=== PATIENT | male | born 1940 | race Caucasian/White ===

== ENCOUNTER 2016-06-23 07:02 | Outpatient (CLI) | payer MEDICARE ==
[~2016-06-23] VITALS: Ht 167.6 cm; Wt 103.6 kg
--- NOTE | ~2016-06-23 | HEMODYNAMI ---
PATIENT:MILLICENT SHERWOOD MEDICAL RECORD: [id number] : 44 LOCATION:[facility] ADMISSION DATE: 06/23/16 Generatedon:06/23/201611:25 Patient name: MILLICENT SHERWOOD Patient #: [id number] SSN: : 1940 Date of study: 06/23/2016 Page: Of Hemodynamic Procedure Report Patient Data Patient Demographics Procedure consent was obtained First Name: MILLICENT Gender: Male Last Name: PRESLEY : 1940 [facility] Initial: J Age: 76 year(s) Patient #: [id number] Race: Unknown Additional ID: [id number] Contact details Address: [place] [address] State: [place] City: [facility] Zip code: [address] Past Medical History Allergies: No known allergies Admission Admission Data Admission Date: 06/23/2016 Admission Time: 7:02 Admit Source: Other Procedure Procedure Types Cath Procedure Diagnostic Procedure LHC LHC w/Coronaries PCI Procedure Coronary Stent Initial Procedure Description Procedure Date Procedure Date: 06/23/2016 Procedure Start Time: 11:11 Procedure End Time: 11:25 Procedure Staff Name Function Quiana Sam MD Ordering physician Shamir Ames MD Performing Physician Armaan Mendoza RT Scrub Shandra Wakefield RN Nurse Darrick Cancino RT Jewel Setter Macario Ashby RT Monitor Procedure Data Cath Procedure Fluoroscopy Diagnostic fluoroscopy Total fluoroscopy Time: 2.2 time: 2.2 min min Diagnostic fluoroscopy Total fluoroscopy dose: 807 dose: 807 mGy mGy Contrast Material Contrast Material Type Amount (ml) Isovue 370 90 Entry Location Entry Primary Successful Side Size Upsize Upsize Entry Closure Succes sful Closure Location (Fr) 1 (Fr) 2 (Fr) Remarks Device Remarks Femoral Right 5 Fr 6 Fr Vascade artery Short Closure System Diagnostic catheters Device Type Used For End Catheter Placement Cordis 5Fr Pigtail LV Angiography Catheter (MP) Cordis 5Fr JL 4.0 Left Coronary Catheter (MP) Angiography Cordis 5Fr 3DRC Catheter Right Coronary (MP) Angiography Procedure Complications No complications Procedure Medications Medication Administration Route Dosage Oxygen NC 2 l/min Heparin Flush Bag added to field 2 bags (1000units/500ml NS) Lidocaine 2% added to field 20 Benadryl I.V. 50 mg Versed I.V. 1 mg Fentanyl I.V. 50 mcg Fentanyl I.V. 50 mcg Heparin Bolus 4000 units Integrilin (Bolus I.V. 9.5 ml 2mg/ml) Versed I.V. 0.5 mg Plavix P.O. 600 mg Hemodynamics Rest Heart Rate: 56 (bpm) Snapshots Pre Cath Intra NCS Post Cath Vital Signs Time Heart Resp SPO2 NIBP (mmHg) Rhythm Pain Sedation Rate (ipm) (%) Status Level (bpm) 10:57:55 53 18 98 147/68(115) SB 0 (11) 10(A) , No pain 11:02:52 52 16 99 161/77(127) SB 0 (11) 10(A) , No pain 11:07:12 56 20 98 126/65(93) SB 0 (11) 10(A) , No pain 11:11:29 55 16 97 114/63(85) SB 0 (11) 10(A) , No pain 11:15:40 53 16 99 132/63(95) SB 0 (11) 9(A) , No pain 11:19:52 58 16 99 115/61(77) SB 0 (11) 9(A) , No pain 11:22:40 55 16 96 120/58(85) SB 0 (11) 10(A) , No pain Medications Time Medication Route Dose Verified Delivered Reason Notes Effectiveness by by 10:57:24 Oxygen NC 2 Shamir Shandra Per l/min Kwaku Wakefield RN physician 10:57:33 Heparin Flush added 2 Shamirpatria Barksdale used for Bag to bags Kwaku Ames MD procedure (1000units/500ml field NS) 10:57:40 Lidocaine 2% added 20ml Shamir Barksdale used for to vial Kwaku Ames MD procedure field 10:57:46 Benadryl I.V. 50 mg Shamir Shandra Per Kwaku Wakefield RN physician 11:10:45 Versed I.V. 1 mg Shamir Shandra for sedation Kwaku Wakefield RN 11:10:53 Fentanyl I.V. 50 Shamir Shandra for sedation mcg Kwaku Wakefield RN 11:13:00 Fentanyl I.V. 50 Shamir Shandra for sedation mcg Kwaku Wakefield RN 11:13:49 Versed I.V. 0.5 Shamir Shandra for sedation mg Kwaku Wakefield RN 11:15:50 Heparin Bolus 4000 Shamir Shandra dose units Kwaku Wakefield RN verified wtih dr ames 11:17:24 Integrilin I.V. 9.5 Shamir Shandra for (Bolus 2mg/ml) ml Kwaku Wakefield RN antiplatelet therapy 11:21:21 Plavix P.O. 600 Shamir Shandra for mg Kwaku Wakefield RN antiplatelet therapy Procedure Log Time Note 10:44:54 Admit Source: Other 10:44:57 Darrick Cancino RT(R) sent for patient. Start room use. 10:44:58 Time tracking: Regular hours 10:45:01 Plan of Care:Hemodynamics will remain stable., Cardiac rhythm will remain stable., Comfort level will be maintained., Respiratory function will remain adequate., Patient/ family verbilizes understanding of procedure., Procedure tolerated without complication., Recovers from procedure without complications.. 10:49:30 Patient allergic to No known allergies 10:52:57 Patient received from Outpatients to [facility] 1 Alert and oriented. Tansferred to table in Supine position. 10:52:58 Warm blankets applied, and eliseo hugger turned on for patient comfort. 10:52:58 Correct patient and procedure confirmed by team. 10:53:00 Signed procedure consent form obtained from patient. 10:53:01 ECG and BP/O2 sat monitors applied to patient. 10:56:47 Vital chart was started 10:57:24 Oxygen 2 l/min NC was given by Shandra Wakefield RN; Per physician; 10:57:33 Heparin Flush Bag (1000units/500ml NS) 2 bags added to field was given by Shamir Ames MD; used for procedure; 10:57:40 Lidocaine 2% 20ml vial added to field was given by Shamir Ames MD; used for procedure; 10:57:46 Benadryl 50 mg I.V. was given by Shandra Wakefield RN; Per physician; 11:06:51 Baseline sample Acquired. 11:07:09 Rhythm: sinus rhythm 11:07:12 Full Disclosure recording started 11:07:39 H&P Date Dictated: 06/08/2017 Within 30 days and on chart.. 11:07:41 Pre-procedure instructions explained to patient. 11:07:45 Pre-op teaching completed and patient verbalized understanding. 11:07:46 Family in waiting room. 11:07:48 Patient NPO since Midnight. 11:07:51 Is the patient allergic to Iodine/contrast media? No. 11:07:53 Is patient on blood thinner?No 11:08:38 Patient diabetic? Yes. 11:08:40 If diabetic: On Metformin? No 11:08:40 ----Pre-sedation anethsthesia assessment.---- 11:08:42 Previous problem with sedation/anesthesia? No ? 11:08:44 Snore? Yes 11:08:45 Sleep apnea? No 11:08:46 Deviated septum? No 11:08:48 Opens mouth fully? Yes 11:08:49 Sticks out tongue? Yes 11:08:51 Airway obstruction? No ? 11:08:55 Dentures? Yes top in tight 11:08:59 Pre procedure: right dorsailis pedis pulse 2+ Normal; easily identifiable; not easily obliterated 11:09:04 Patient pain scale 0/10 ?. 11:09:08 IV patent on arrival in left hand with 0.9% NaCl at 10ml/hr. 11:09:22 Zero performed for pressure channel P1 11:10:22 Lab results completed and on chart. 11:10:24 Right groin area was prepped with chlora-prep and draped in sterile fashion 11:10:25 Alarms reviewed by R. N. 11:10:25 Sharps counted by scrub and verified by R.N. 11:10:26 --------ALL STOP TIME OUT------ 11:10:27 Final Timeout: patient, procedure, and site verified with staff and physician. All members of the team are in agreement. 11:10:28 Right groin site verified by team. 11:10:32 Physical assessment completed. ASA score P 2 - A patient with mild systemic disease as per Shamir Ames MD. 11:10:36 Sedation plan: IV Moderate Sedation Versed, Fentanyl 11:10:45 Versed 1 mg I.V. was given by Shandra Wakefield RN; for sedation; 11:10:53 Fentanyl 50 mcg I.V. was given by Shandra Wakefield RN; for sedation; 11:10:58 Use device set Femoral Dx 11:10:59 Acist Syringe opened to sterile field. 11:11:00 Bag Decanter opened to sterile field. 11:11:00 Cardinal Cath Pack opened to sterile field. 11:11:00 Terumo 5Fr Assumption Sheath opened to sterile field. 11:11:01 St Tez 260cm J .035 wire opened to sterile field. 11:11:02 Acist Hand Control opened to sterile field. 11:11:02 Acist Manifold opened to sterile field. 11:11:03 Cordis Infinity 5Fr Multipack catheter opened to sterile field. 11:11:04 Tegaderm 4 x 4 opened to sterile field. 11:11:10 Procedure started. 11:11:17 Local anesthetic to right femoral artery with Lidocaine 2% by Shamir Ames MD.INITIAL ACCESS ONLY 11:11:25 A 5 Fr sheath was inserted into the Right Femoral artery 11:11:31 A Cordis 5Fr Pigtail Catheter (MP) was advanced over the wire and used for LV Angiography. 11:11:36 LV angiography performed. 11:11:39 LV gram done using WHITESIDE 11:11:44 EF : 40 % 11:11:47 Catheter removed. 11:11:52 A Cordis 5Fr JL 4.0 Catheter (MP) was advanced over the wire and used for Left Coronary Angiography. 11:11:56 LCA angiography performed. 11:12:30 Terumo 6Fr Assumption Sheath opened to sterile field. 11:12:30 Puentes Whisper J 300cm 0.014 guide wire opened to sterile field. 11:12:31 Merit BasixCompak Inflation Kit opened to sterile field. 11:12:34 Catheter removed. 11:12:45 A Cordis 5Fr 3DRC Catheter (MP) was advanced over the wire and used for Right Coronary Angiography. 11:12:48 RCA angiography performed. 11:12:59 Catheter removed. 11:13:00 Fentanyl 50 mcg I.V. was given by Shandra Wakefield RN; for sedation; 11:13:49 Versed 0.5 mg I.V. was given by Shandra Wakefield RN; for sedation; 11:15:50 Heparin Bolus 4000 units was given by Shandra Wakefield RN; ; dose verified wt dr ames 11:15:50 Cordis 6FR XBLAD 4.0 guide catheter opened to sterile field. 11:16:05 ACC PCI Site: mLAD has 80% stenosis. 11:16:07 ACC Pre-intervention IRINA Flow is 3. 11:16:14 Sheath upsized to a 6 Fr Short. 11:16:22 6 Fr XBLAD 4 guide catheter was inserted over the wire 11:16:25 WHISPER wire advanced. 11:17:24 Integrilin (Bolus 2mg/ml) 9.5 ml I.V. was given by Shandra Wakefield RN; for antiplatelet therapy; 11:17:33 Inflation Number: 1 A Medtronic Resolute 2.5 X 8 stent was prepped and advanced across the Mid LAD. The stent was deployed at 17 SHAILESH for 0:23 (min:sec). 11:17:55 Stent catheter was removed intact over wire. 11:17:56 Wire removed. 11:17:56 Guide catheter removed. 11:18:17 Contrast amount:Isovue 370 90ml. 11:18:24 Sheath removed intact; hemostasis achieved with Vascade Closure System to the Right Femoral artery. 11:18:27 Procedure ended.(Physican Out) 11:18:54 Fluoroscopy time 02.20 minutes. 11:19:00 Fluoroscopy dose: 807 mGy 11:19:00 Flurop Dose total: 807 11:19:01 Sharps counted by scrub and verified by R.N. 11:19:01 Insertion/operative site no bleeding no hematoma. 11:19:04 Post-op/insertion site Right Femoral artery dressed using a 4 x 4 and Tegaderm. 11:19:07 Post right femoral artery:stable 11:19:08 Post Procedure Pulses reassessed and unchanged 11:19:12 Post procedure: right dorsailis pedis pulse 1+ Palpable, but thready & weak; easily obliterated. 11:19:15 Post procedure rhythm: sinus rhythm 11:19:17 Post procedure instruction explained to patient.Patient verbalizes understanding. 11:19:29 Procedure type changed to Cath procedure, Diagnostic procedure, LHC, LHC w/Coronaries, PCI procedure, Coronary Stent Initial 11:19:44 Vascade 6/7 Fr Closure Device opened to sterile field. 11:19:49 Procedure and supply charges have been captured, reviewed, submitted and are correct. 11:20:12 Procedure Complication : No complications 11:21:21 Plavix 600 mg P.O. was given by Shandra Wakefield RN; for antiplatelet therapy; 11:24:51 Vital chart was stopped 11:24:52 See physician's report for complete and final results. 11:24:59 Report given to Post Procedure Room. 11:25:05 Patient transfered to Post Procedure Room with Stretcher. 11:25:07 Procedure ended. 11:25:07 Full Disclosure recording stopped 11:25:19 ACC-PCI Only Patient was given prescriptions, or instructed by Quiana Sam MD to start/continue the following medications upon discharge: Plavix 11:25:21 End room use (Document Last) Intervention Summary Intervention Notes Time ActionType Lesion and Equipment Action# Pressure Duration Attributes Used 11:17:33 Place stent Mid LAD Medtronic 1 17 00:23 Resolute 2.5 X 8 stent Device Usage Item Name Manufacture Quantity Catalog Hospital Part Current Minima l Lot# / Number Charge Number Stock Stock Serial# Code Acist Acist 1 07509 503487 321411 967044 20 Syringe Medical Systems Inc Bag Microtek 1 2002S 948067 79207 482714 5 DecShareMagnet [employer] Inc. Cardinal Cardinal 1 [id number] 232191 80279 593124 5 Cath Pack Health Terumo 5Fr Terumo 1 [id number] 874695 845929 540057 [address] Tez 1 026838 499479 757727 796266 30 260cm J .035 wire Acist Hand Acist 1 19379 485862 276319 557118 5 Control Medical Systems Inc Acist Acist 1 05115 576811 188479 718859 5 Manifold Medical Systems Inc Cordis Cardinal 1 [id number] 653363 69081 283491 30 Celltrix 5Fr Multipack catheter Tegaderm 4 3M 1 1626W 002316 118952 478569 5 x 4 Cordis 5Fr Cardinal 1 512094 5 Pigtail Health Catheter (MP) Cordis 5Fr Cardinal 1 111118 5 JL 4.0 Health Catheter (MP) Terumo 6Fr Terumo 1 QCP002 638683 550313 254070 40 Assumption Sheath Puentes Puentes 1 [id number] 264545 184240 210688 5 Whisper J Vascular 300cm 0.[address] [facility] 1 LC1908 925032 589594 024721 15 Basix[employer] Medical Inflation Kit Cordis 5Fr Cardinal 1 834952 5 3DRC Health Catheter (MP) Cordis 6FR Cardinal 1 [id number] 681536 202755 938685 3 XBLAD 4.0 Health guide catheter Medtronic Medtronic 1 [id number] 607958 064083 9 [id number] Resolute 2.5 X 8 stent Vascade 11/22 Cardiva 1 [id number] 138568 091323 454676 5 Fr Closure Medical, Device Inc. Signature Audit [place] Stage Time Signature Unsigned Intra-Procedure 06/23/2016 Macario Ashby 11:25:41 AM RT(R) Signatures Monitor : Macario Ashby RT Signature : Date : Time : [place] [id number] [place] [address]
[~2016-06-23 07:02] MED LIST: ASCORBIC ACID500 MG PO; ASPIRIN 81 MG E81 MG PO; BAYER CHEWABLE81 MG PO; CARDURA1 MG; CARDURA1 MG PO; CHROMIUM PICO200 MC1 PO; CINNAMON500 MG PO; EFFIENT10 MG PO; FISH OIL 1,0001 CA1 PO; GLUCOTROL 5 MG T5 MG PO; LANTUS INSULIN10 ML; LEVEMIR100 U/M1 SQ; LISINOPRIL10 MG PO; PEPCID20 MG PO; PLAVIX75 MG PO; PRAVACHOL40 MG PO; PROSCAR5 MG PO; SAW PALMETTO450 MG PO; TRIGLIDE160 MG PO; VITAMIN B-122500 MCG SL
[2016-06-23 08:03] LABS: BASOPHILS 0.5 % (0.0-2.0); EOSINOPHILS 4.3 % (0-7); HEMATOCRIT 40.8 % (42.0-54.0); HEMOGLOBIN 13.9 g/dL (13.5-17.5); IMMATURE GRANULOCYTES 0.1 % (0-5); LYMPHOCYTES 22.5 % (15-50); MCH 31.4 pg (26.0-34.0); MCHC 34.1 g/dL (31.0-37.0); MCV 92.3 fL (80.0-100.0); MEAN PLATELET VOLUME 12.5 fL (7.4-10.4); MONOCYTES 12.3 % (2-11); NEUTROPHILS 60.3 % (40-80); RBC 4.42 10x6/uL (4.20-6.10); WBC 8.4 10x3/uL (4.8-10.8)
[2016-06-23 08:07] LABS: ANION GAP 15.1 mmol/L (8-16); CALCIUM 9.9 mg/dL (8.5-10.1); CARBON DIOXIDE 25.1 mmol/L (21.0-32.0); CREATININE - SERUM 2.3 mg/dL (0.6-1.3); POTASSIUM - SERUM 5.2 mmol/L (3.5-5.1)
[2016-06-23 08:10] LABS: PLATELET COUNT 160 10x3/uL (130-400)
[2016-06-23] MEDS ORDERED: ZOCOR40 MG PO (09:28)
[2016-06-23] MEDS ORDERED: KLOR-CON M2020 MEQ PO (09:30)
[2016-06-23] MEDS ORDERED: FUROSEMIDE40 MG PO (09:31)
[2016-06-23 09:39] VITALS: BP 111/69; Ht 167.6 cm; Wt 103.6 kg
[2016-06-23] MEDS ORDERED: PLAVIX75 MG PO (11:32)
--- NOTE | 2016-06-23 11:44 | NUR ---
SLEEPING, LYING FLAT. NC 2L IN PLACE UNTIL AWAKENS, NO RESP DISTRESS. SBRADY RATE 52 W NO C/O CHEST PAIN. PULSES PALP X 4. R GROIN 6F VASCADE C/D/I WITH NO HEMATOMA OR BLEEDING. AT SIDE.
--- NOTE | 2016-06-23 13:27 | NUR ---
LYING FLAT, SLEEPING, ROOM AIR WITH NO DISTRESS. SBRADY RATE 48 NO C/O CHEST PAIN. PULSES PALP X 4. R GROIN 6F VASCADE C/D/I WITH NO HEMATOMA OR BLEEDING.
--- NOTE | 2016-06-23 14:53 | NUR ---
HOB ELEVATED, ROOM AIR. SINUS MIKA RATE 54. WILL MONITOR R GROIN FOR BLEEDING.
--- NOTE | 2016-06-23 14:58 | NUR ---
LEFT FOREARM PIV REMOVED WITH BANDAID APPLIED. R GROIN REMAINS C/D/I WITH NO HEMATOMA OR BLEEDING.
--- NOTE | 2016-06-23 15:13 | NUR ---
AMBULATED TO BATHROOM AND BACK TO BEDSIDE. R GROIN REMAINS C/D/I WITH NO HEMATOMA OR BLEEDING. UP TO BEDSIDE TO DRESS WITH ASSIST FROM . D/C INSTRUCTIONS DISCUSSED WITH PATIENT AND FAMILY. WHEELED DOWN VIA WHEELCHAIR BY CATH TEAM.
--- NOTE | 2016-06-30 11:11 | OP ---
PATIENT NAME: MILLICENT SHERWOOD MEDICAL RECORD: [id number] :44 LOCATION:D.CAT ADMISSION DATE: SURGEON: KRISTA IBANEZ MD DATE OF OPERATION: 06/23/2016 PROCEDURES: 1. PTCA stent, LAD. 2. Left heart catheterization. 3. Selective coronary angiography. 4. Left ventriculogram. INDICATION: Angina and coronary artery disease. PROCEDURE IN DETAIL: After informed consent was obtained and after a detailed explanation of risks, benefits as well as alternative therapies, the patient elected to proceed with angiogram and angioplasty. The right femoral area was prepped and draped in normal sterile fashion. The right femoral artery was cannulated via modified Seldinger technique with placement of 6-Afghan sheath. All catheters exchanged through this sheath. FINDINGS: Left ventriculogram was performed in the standard 30-degree WHITESIDE view, reveals mild global hypokinesis. Overall ejection fraction 40% to 45%. SELECTIVE CORONARY ANGIOGRAPHY: 1. Left main showed no significant angiographic disease. 2. Left anterior descending has previously placed stent in the mid distal vessel. This has 80% in-stent restenosis in the distal portion of the stent. 3. Left circumflex has previously placed stent. This is widely patent. No disease elsewise throughout the circumflex or its branches. 4. Right coronary artery has moderate irregularities, but no flow-limiting stenosis. PERCUTANEOUS TRANSLUMINAL CORONARY ANGIOPLASTY STENT OF THE LEFT ANTERIOR DESCENDING: The stent used was a 2.5 x 8 mm Resolute. Result was 0% residual stenosis. OVERALL IMPRESSION: Successful percutaneous transluminal coronary angioplasty stent of the left anterior descending going from 80% initial in-stent restenosis to 0% residual stenosis. TRANSINT:[id number] Voice Confirmation ID: [id number] DOCUMENT ID: [id number] KRISTA IBANEZ MD at 1111 CC: [id number] DICTATION DATE: 06/23/16 1123 BEAN PICKER: 06/23/16 1350 DEP CLI 06/23/[address] [address]
== END 2016-06-23 15:15 | disposition home or self-care (01) ==
LOC: D.CATH 07:02
PROVIDERS: Internal Medicine Interventional Cardiology
DX: I25.119 Atherosclerotic heart disease of native coronary artery with unspecified angina pectoris (principal); R06.02 Shortness of breath; R94.31 Abnormal electrocardiogram [ECG] [EKG]; I10 Essential (primary) hypertension; E78.5 Hyperlipidemia, unspecified
CPT/HCPCS: 93458; C9600

== ENCOUNTER → 2017-01-29 09:41 | Outpatient (CLI) | payer MEDICARE ==
[2016-06-23 09:39] VITALS: BMI 36.8
[~2017-01-29 09:41] MED LIST changes: +FUROSEMIDE40 MG PO; +KLOR-CON M2020 MEQ PO; +ZOCOR40 MG PO
[2017-01-29 10:09] LABS: WBC 5.6 10x3/uL (4.8-10.8)
[2017-01-29 10:10] LABS: BASOPHILS 0.9 % (0-2); HEMATOCRIT 36.1 % (42.0-54.0); HEMOGLOBIN 12.3 g/dL (13.5-17.5); IMMATURE GRANULOCYTES 0.2 % (0-5); LYMPHOCYTES 32.9 % (15-50); MCHC 34.1 g/dL (31.0-37.0); MEAN PLATELET VOLUME 11.9 fL (7.4-10.4); PLATELET COUNT 161 10x3/uL (130-400); RBC 3.84 10x6/uL (4.20-6.10); RDW 13.3 % (11.5-14.5)
[2017-01-29 10:13] LABS: APPEARANCE CLEAR (CLEAR); BILIRUBIN NEGATIVE (NEGATIVE); COLOR YELLOW (YELLOW); GLUCOSE 100 mg/dL (NEGATIVE); KETONE NEGATIVE (NEGATIVE); LEUKOCYTE ESTERASE NEGATIVE (NEGATIVE); NITRITE NEGATIVE (NEGATIVE); PROTEIN NEGATIVE (NEGATIVE); SPECIFIC GRAVITY 1.015 (1.005-1.020); UROBILINOGEN NORMAL (NORMAL)
[2017-01-29 10:18] LABS: HEMOGLOBIN A1C 9.9 % (4.8-6.0)
[2017-01-29 10:34] LABS: ALBUMIN 3.5 g/dL (3.4-5.0); BILIRUBIN - TOTAL 0.33 mg/dL (0.2-1.3); CARBON DIOXIDE 26.5 mmol/L (21.0-32.0); POTASSIUM - SERUM 5.5 mmol/L (3.5-5.1); PROTEIN - SERUM 7.3 g/dL (6.4-8.2)
[2017-01-29 10:36] LABS: SCREENING PSA (YEARLY) 1.34 ng/mL (0.00-4.00)
== END | disposition home or self-care (01) ==
LOC: D.LAB 08:30
PROVIDERS: Family Medicine
DX: I12.9 Hypertensive chronic kidney disease with stage 1 through stage 4 chronic kidney disease, or unspecified chronic kidney disease (principal); N18.1 Chronic kidney disease, stage 1; E78.5 Hyperlipidemia, unspecified; I25.10 Atherosclerotic heart disease of native coronary artery without angina pectoris; N40.0 Benign prostatic hyperplasia without lower urinary tract symptoms; Z12.5 Encounter for screening for malignant neoplasm of prostate; E11.22 Type 2 diabetes mellitus with diabetic chronic kidney disease

== ENCOUNTER → 2017-07-09 09:17 | Outpatient (CLI) | payer MEDICARE ==
[2016-06-23 09:39] VITALS: BMI 36.8
[2017-07-09 09:54] LABS: HEMOGLOBIN A1C 6.8 % (4.8-6.0)
[2017-07-09 10:11] LABS: APPEARANCE CLEAR (CLEAR); BACTERIA FEW /hpf (NONE SEEN); BILIRUBIN NEGATIVE (NEGATIVE); COLOR YELLOW (YELLOW); EPITHELIAL CELLS RARE /hpf (0-5); GLUCOSE NEGATIVE (NEGATIVE); KETONE NEGATIVE (NEGATIVE); MUCUS <1+ /lpf (NONE SEEN); NITRITE NEGATIVE (NEGATIVE); PROTEIN 1+ mg/dL (NEGATIVE); RED CELLS - URINE OCC /hpf (0-5); SPECIFIC GRAVITY 1.015 (1.005-1.020); UROBILINOGEN NORMAL (NORMAL)
== END | disposition home or self-care (01) ==
LOC: D.LAB 09:17
PROVIDERS: Family Medicine
DX: E11.9 Type 2 diabetes mellitus without complications (principal)

== ENCOUNTER 2018-03-08 09:00 | Outpatient (CLI) | payer MEDICARE ==
[~2018-03-08] VITALS: Ht 167.6 cm; Wt 108.2 kg
--- NOTE | ~2018-03-08 | OP ---
PATIENT NAME: MILLICENT SHERWOOD MEDICAL RECORD: [id number] :44 LOCATION:D.CAT ADMISSION DATE: SURGEON: KRISTA IBANEZ MD DATE OF OPERATION: 03/08/2018 PROCEDURES: 1. PTCA and stent, RCA. 2. Left heart catheterization. 3. Selective coronary angiography. 4. Left ventriculogram. 5. Laser atherectomy. INDICATION: Angina, unstable. PROCEDURE IN DETAIL: After informed consent was obtained and after detailed description of risks and benefits as well as alternative therapies, the patient elected to proceed with angiogram, angioplasty, and laser atherectomy. FINDINGS: The left ventriculogram was performed in standard 30-degree WHITESIDE view, reveals good cardiac wall motion throughout all segments. Overall ejection fraction estimated at 60%. SELECTIVE CORONARY ANGIOGRAPHY: 1. Left main has no significant angiographic disease. 2. Left anterior descending has 70% to 80% stenosis in the mid vessel. 3. Left circumflex has mild irregularities, but no flow-limiting stenosis. 4. Right coronary has 99% stenosis in the mid distal vessel. Laser atherectomy was performed with a 0.9-mm catheter. Multiple passes were made at 80/40. This was then stented with a 3.0 x 18-mm [place] stent. Result was 0% residual stenosis. OVERALL IMPRESSION: Successful PTCA, stent, and laser atherectomy of the RCA going from 95% initial stenosis to 0% residual. TRANSINT:[id number] Voice Confirmation ID: [id number] DOCUMENT ID: [id number] KRISTA IBANEZ MD at 0924 CC: [id number] DICTATION DATE: 04/01/18 1246 ASSURANCE SOURCING MANAGER: 04/01/18 1558 [facility] CLI 03/08/18 [place] [id number]
--- NOTE | ~2018-03-08 | HEMODYNAMI ---
PATIENT:MILLICENT SHERWOOD MEDICAL RECORD: [id number] : 44 LOCATION:[facility] ADMISSION DATE: 03/08/18 Generatedon:03/08/201811:40 Patient name: MILLICENT SHERWOOD Patient #: [id number] SSN: : 1940 Date of study: 03/08/2018 Page: Of Hemodynamic Procedure Report Patient Data Patient Demographics Procedure consent was obtained First Name: MILLICENT Gender: Male Last Name: PRESLEY : 1940 [facility] Initial: J Age: 78 year(s) Patient #: [id number] Race: Unknown Additional ID: [id number] Contact details Address: [place] [address] State: [place] City: [facility] Zip code: [address] Past Medical History Allergies Allergen Reaction Date Comments Reported Other allergy 03/08/2018 nkda Admission Admission Data Admission Date: 03/08/2018 Admission Time: 9:00 Procedure Procedure Types Cath Procedure Diagnostic Procedure LHC LHC w/Coronaries Sedation Charges Moderate Sedation up to 15 minutes Procedure Description Procedure Date Procedure Date: 03/08/2018 Procedure Start Time: 11:12 Procedure End Time: 11:38 Procedure Staff Name Function Shamir Ames MD Performing Physician Astrid Morales RT Monitor Stephania Sutherland RT Scrub Basilio James RN Nurse Procedure Data Cath Procedure Fluoroscopy Diagnostic fluoroscopy Total fluoroscopy Time: 5.2 time: 5.2 min min Diagnostic fluoroscopy Total fluoroscopy dose: dose: 1163 mGy 1163 mGy Contrast Material Contrast Material Type Amount (ml) Isovue 300 100 Entry Location Entry Primary Successful Side Size Upsize Upsize Entry Closure Brownlee ccessful Closure Location (Fr) 1 (Fr) 2 (Fr) Remarks Device Remarks Radial Right 6 Fr Mechanical tr artery Short Compression Estimated blood loss: 10 ml Diagnostic catheters Device Type Used For End Catheter Placement DIAGNOSTIC Clarendon 110cm 5 Procedure Fr catheter ([id number]) Procedure Complications No complications Procedure Medications Medication Administration Route Dosage Oxygen etCO2 Nasal cannula 2 l/min Heparin Flush Bag added to field 2 bags (1000units/500ml NS) 0.9% NaCl I.V. 100 ml/hr Radial Cocktail added to field 1 syringe (Verapomil 2mg/Nitro 400mcg/Heparin 1500units) Radial Cocktail I.A. 1 syringe (Verapomil 2mg/Nitro 400mcg/Heparin 1500units) Fentanyl I.V. 50 mcg Versed I.V. 1 mg Heparin Bolus I.V. 4000 units Hemodynamics Rest Heart Rate: 105 (bpm) Snapshots Pre Cath Intra NCS Post Cath Vital Signs Time Heart Resp SPO2 etCO2 NIBP (mmHg) Rhythm Pain Sedation Rate (ipm) (%) (mmHg) Status Level (bpm) 10:56:41 58 16 96 0 185/91(153) NSR 0 (11) 10(A) , No pain 11:01:12 143 17 97 0 182/90(153) NSR 0 (11) 10(A) , No pain 11:05:42 57 16 96 0 180/87(149) NSR 0 (11) 10(A) , No pain 11:10:06 58 16 83 0 153/77(134) NSR 0 (11) 10(A) , No pain 11:14:27 55 17 97 0 163/82(137) NSR 0 (11) 10(A) , No pain 11:18:45 55 16 97 36 145/74(111) NSR 0 (11) 9(A) , No pain 11:23:05 52 17 96 35.3 136/76(110) NSR 0 (11) 9(A) , No pain 11:27:23 52 17 97 36.8 149/72(116) NSR 0 (11) 9(A) , No pain 11:31:45 53 17 97 35.3 149/74(118) NSR 0 (11) 9(A) , No pain 11:36:07 52 16 97 35.3 159/78(127) NSR 0 (11) 9(A) , No pain Medications Time Medication Route Dose Verified Delivered Reason Not es Effectiveness by by 11:14:17 Oxygen etCO2 2 l/min Shamir Richmond Per physician Nasal Kwaku James RN cannula 11:14:26 Heparin Flush added 2 bags Shamir Richmond used for Bag to Kwaku James rayon coner (1000units/500ml field NS) 11:14:36 0.9% NaCl I.V. 100 Shamir Richmond Per physician ml/hr Kwaku James RN 11:14:43 Radial Cocktail added 1 Shamir Richmond used for (Verapomil to syringe Kwaku James rayon coner 2mg/Nitro field 400mcg/Heparin 1500units) 11:14:49 Radial Cocktail I.A. 1 Shamir Barksdale for (Verapomil syringe Kwaku Ames MD vasodilation 2mg/Nitro 400mcg/Heparin 1500units) 11:14:59 Fentanyl I.V. 50 mcg Shamir Barksdale for sedation Kwaku Ames MD 11:15:07 Versed I.V. 1 mg Shamir Barksdale for sedation Kwaku Ames MD 11:25:31 Heparin Bolus I.V. 4000 Shamir aBrksdale for units Kwaku Ames MD anticoagulation Procedure Log Time Note 10:35:25 Shamir Ames MD sent for patient. Start room use. 10:48:27 Time tracking: Regular hours (M-F 7:00 - 5:00) 10:48:31 Plan of Care:Hemodynamics will remain stable., Cardiac rhythm will remain stable., Comfort level will be maintained., Respiratory function will remain adequate., Patient/ family verbilizes understanding of procedure., Procedure tolerated without complication., Recovers from procedure without complications.. 10:48:38 Patient received from Pre/Post Procedure Room to CCL 2 Alert and oriented. Tansferred to table in Supine position. 10:48:39 Warm blankets applied, and eliseo hugger turned on for patient comfort. 10:48:40 Correct patient and procedure confirmed by team. 10:48:42 Signed procedure consent form obtained from patient. 10:55:27 Vital chart was started 11:01:43 Baseline sample Acquired. 11:01:50 Rhythm: sinus rhythm 11:01:51 Full Disclosure recording started 11:02:08 H&P Date Dictated: 03/08/2018 Within 30 days and on chart.. 11:02:09 Pre-procedure instructions explained to patient. 11:02:11 Family in waiting room. 11:02:14 Patient NPO since Midnight. 11:02:37 Patient allergic to Other allergynkda 11:02:45 Is the patient allergic to Iodine/contrast media? No. 11:02:47 Was the patient premedicated? Yes 11:02:56 Is patient on blood thinner?Yes 11:02:58 Patient diabetic? Yes. 11:03:03 Snore? Yes 11:03:05 Sleep apnea? Yes 11:03:06 Deviated septum? No 11:03:08 Opens mouth fully? Yes 11:03:12 Dentures? Yes ? 11:03:17 Patient pain scale 0/10 ?. 11:03:23 IV patent on arrival in left forearm with 0.9% NaCl at [facility]. 11:03:27 Lab results completed and on chart. 11:03:30 Right Radial & Right Groin area was prepped with chlora-prep and draped in sterile fashion 11:03:32 Alarms reviewed by R. N. 11:03:32 Sharps counted by scrub and verified by R.N. 11:03:33 Physician paged 11:06:32 If diabetic: On Metformin? No 11:09:34 Physician arrived 11:09:35 --------ALL STOP TIME OUT------ 11:09:36 Final Timeout: patient, procedure, and site verified with staff and physician. All members of the team are in agreement. 11:09:39 Right Radial & Right Groin site verified by team. 11:09:43 Physical assessment completed. ASA score P 2 - A patient with mild systemic disease as per Shamir Ames MD. 11:09:48 Sedation plan: IV Moderate Sedation Medication:Versed, Fentanyl 11:10:29 Use device set Femoral Dx 11:10:30 ACIST Syringe (88950) opened to sterile field. 11:10:31 Bag Decanter () opened to sterile field. 11:10:31 Medline Cath Pack ([id number]) opened to sterile field. 11:10:32 DIAGNOSTIC WIRE .035 260cm J wire (703957) opened to sterile field. 11:10:34 ACIST Hand Control (99974) opened to sterile field. 11:10:34 ACIST Manifold (20579) opened to sterile field. 11:10:34 DIAGNOSTIC Multipack 5Fr catheter set ([id number]) opened to sterile field. 11:10:35 Tegaderm 4 x 4 (1626W) opened to sterile field. 11:10:37 PERCUTANEOUS ENTRY 19GA needle opened to sterile field. 11:10:46 Procedure started. 11:12:00 Local anesthetic to right radial artery with Lidocaine 2% by Shamir Aems MD.INITIAL ACCESS ONLY 11:12:10 A 6 Fr Short sheath was inserted into the Right Radial artery 11:12:46 SHEATH 6Fr Prelude Radial ([id number]) opened to sterile field. 11:13:12 A DIAGNOSTIC Clarendon 110cm 5 Fr catheter (832650) was advanced over the wire and used for Procedure. 11:13:28 J wire advanced. 11:13:32 LV angiography performed. 11:14:17 Oxygen 2 l/min etCO2 Nasal cannula was administered by Basilio James RN; Per physician; 11:14:26 Heparin Flush Bag (1000units/500ml NS) 2 bags added to field was administered by Basilio James RN; used for procedure; 11:14:36 0.9% NaCl 100 ml/hr I.V. was administered by Basilio James RN; Per physician; 11:14:42 LV gram done using WHITESIDE 11:14:43 Radial Cocktail (Verapomil 2mg/Nitro 400mcg/Heparin 1500units) 1 syringe added to field was administered by Basilio James RN; used for procedure; 11:14:49 Radial Cocktail (Verapomil 2mg/Nitro 400mcg/Heparin 1500units) 1 syringe I.A. was administered by Shamir Ames MD; for vasodilation; 11:14:59 Fentanyl 50 mcg I.V. was administered by Shamir Ames MD; for sedation; 11:15:07 Versed 1 mg I.V. was administered by Shamir Ames MD; for sedation; 11:15:10 EF : 50 % 11:15:13 LCA angiography performed. 11:15:48 INFLATOR Merit BasixCompak (SH4631) opened to sterile field. 11:17:04 GUIDE 6FR AR 2.0 catheter ([id number]) opened to sterile field. 11:17:13 RCA angiography performed. 11:17:19 Catheter removed. 11:17:21 Proceeding to intervention. 11:17:42 6 Fr AR2 guide catheter was inserted over the wire 11:18:20 CHOICE PT Extra Support 182cm wire ([id number]) opened to sterile field. 11:20:50 LASER ELCA 0.9 Rx atherectomy catheter (509184) opened to sterile field. 11:24:36 Wire advanced across lesion. 11:25:31 Heparin Bolus 4000 units I.V. was administered by Shamir Ames MD; for anticoagulation; 11:27:18 Inflate balloon Inflation number: 1 A EUPHORA 2.5 x 15 Balloon ([id number]) was prepped and advanced across the Dist RCA, then inflated to 7 SHAILESH for 0:07 (min:sec). 11:27:41 Inflation number: 2 The EUPHORA 2.5 x 15 Balloon ([id number]) was reinflated across the Dist RCA, to 13 SHAILESH for 0:07 (min:sec). 11:27:53 Balloon removed over the wire. 11:28:10 Laser pass to dRCA with Fluence of 80 and Rate of 40. 11:30:56 Laser catheter removed. 11:31:52 Laser total treatment time: 0 minutes 20 seconds 11:32:09 Laser total pulses delivered: 800 11:32:34 Place stent Inflation Number: 3 A PENG RX 3.0 x 18 stent ([id number]) was prepped and advanced across the Dist RCA. The stent was deployed at 13 SHAILESH for 0:05 (min:sec). 11:32:56 TR BAND Standard ([id number]) opened to sterile field. 11:33:25 Sheath removed intact; hemostasis achieved with Mechanical Compression to the Right Radial artery. 11:33:29 Procedure ended.(Physican Out) 11:33:41 Fluoroscopy time 05.20 minutes. 11:34:09 Fluoroscopy dose: 1163 mGy 11:34:09 Flurop Dose total: 1163 11:34:14 Contrast amount:Isovue 300 100ml. 11:34:16 Sharps counted by scrub and verified by R.N. 11:34:18 TR band inflated with 14cc of air. 11:34:30 Post Procedure Pulses reassessed and unchanged 11:34:34 Post-procedure physical assessment completed. ASA score P 2 - A patient with mild systemic disease as per Shamir Ames MD. 11:34:37 Post procedure rhythm: sinus rhythm 11:34:40 Estimated blood loss: 10 ml 11:34:42 Post procedure instruction explained to patient.Patient verbalizes understanding. 11:35:59 Procedure type changed to Cath procedure, Diagnostic procedure, LHC, LHC w/Coronaries, Sedation Charges, Moderate Sedation up to 15 minutes 11:36:00 Procedure and supply charges have been captured, reviewed, submitted and are correct. 11:37:53 Procedure Complication : No complications 11:37:56 Vital chart was stopped 11:37:58 See physician's report for complete and final results. 11:38:00 Report given to Pre/Post Procedure Room. 11:38:05 Patient transfered to Pre/Post Procedure Room with Stretcher. 11:38:07 Procedure ended. 11:38:07 Full Disclosure recording stopped 11:38:16 End room use (Document Last) Intervention Summary Intervention Notes Time ActionType Lesion and Equipment Used Action# Pressure Duration Attributes 11:27:18 Inflate Dist RCA EUPHORA 2.5 x 1 7 00:07 balloon 15 Balloon ([id number]) 11:27:41 Reinflate Dist RCA EUPHORA 2.5 x 2 13 00:07 balloon 15 Balloon ([id number]) 11:32:34 Place stent Dist RCA PENG RX 3.0 x 3 13 00:05 18 stent ([id number]) Device Usage Item Name Manufacture Quantity Catalog Number Hospital Part Current Minimal Lot# / Charge Number Stock Stock Serial# Code ACIST Syringe Acist 1 74579 928110 718818 732197 20 (19402) Medical [employer] Inc Bag Decanter Microtek 1 2001S 833533 32657 026814 5 () Medical Inc. Medline Cath Cardinal 1 [id number] 902697 49751 348215 5 Pack Health ([id number]) DIAGNOSTIC WIRE St Tez 1 691905 261028 037318 193740 30 .035 260cm J wire (605341) ACIST Hand Acist 1 14072 906618 437989 693810 5 Control (65410) [employer] Inc ACIST Manifold Acist 1 80499 670020 292393 246946 5 (75216) [employer] Inc DIAGNOSTIC Cardinal 1 [id number] 109244 22023 112381 30 Multipack 5Fr Health catheter set ([id number]) Tegaderm 4 x 4 3M 1 1626W 455334 479095 208103 5 (1626W) PERCUTANEOUS Cook Medical 1 Z03608 623571 138853 5 ENTRY 19GA needle SHEATH 6Fr Merit 1 [id number] 206958 218692 788731 5 Prelude Radial Medical ([id number]) DIAGNOSTIC Terumo 1 40-4559 860959 731061 028426 5 Clarendon 110cm 5 Fr catheter (116457) INFLATOR Merit Merit 1 [id number] 719033 346153 425272 [address] [employer] Medical (CN8133) GUIDE 6FR AR Medtronic 1 [id number] 524884 06091 716377 1 2.0 catheter ([id number]) CHOICE PT Extra Dyer 1 [id number] 402780 804971 842556 5 Support 182cm Scientific wire ([id number]) LASER ELCA 0.9 Felipe 1 110-004 349736 947193 913349 5 Rx atherectomy Healthcare catheter (592657) (324459) EUPHORA 2.5 x Medtronic 1 [id number] 575393 232330 941390 5 [id number] 15 Balloon ([id number]) PENG RX 3.0 x Medtronic 1 [id number] 683648 5085782 770935 5 [id number] 18 stent ([id number]) TR BAND Terumo 1 [id number] 068689 911143 071208 40 Standard ([id number]) Signature Audit [place] Stage Time Signature Unsigned Intra-Procedure 03/08/2018 Astrid Morales 11:40:36 AM RT(R) Signatures Monitor : Astrid Morales Signature : RT Date : Time : [facility] [address] [place] [address]
[2018-03-08] MEDS ORDERED: CARDURA2 MG PO (09:24)
[2018-03-08] MEDS ORDERED: TOUJEO SOL300 UNIT/1 SC (09:26)
[2018-03-08] MEDS ORDERED: DOXYCYCLINE HYC75 MG PO (09:26)
[2018-03-08] MEDS ORDERED: COZAAR50 MG PO (09:27)
[2018-03-08 09:38] VITALS: BP 182/75; BMI 38.5
[2018-03-08 09:42] VITALS: BP 182/75; Ht 167.6 cm; Wt 108.2 kg
[2018-03-08 09:53] LABS: BASOPHILS 0.4 % (0-2); EOSINOPHILS 3.5 % (0-7); HEMATOCRIT 35.2 % (42.0-54.0); HEMOGLOBIN 12.1 g/dL (13.5-17.5); IMMATURE GRANULOCYTES 0.1 % (0-5); MCH 31.3 pg (26.0-34.0); MCHC 34.4 g/dL (31.0-37.0); MEAN PLATELET VOLUME 11.2 fL (7.4-10.4); MONOCYTES 10.6 % (2-11); NEUTROPHILS 58.4 % (40-80); PLATELET COUNT 161 10x3/uL (130-400); RBC 3.87 10x6/uL (4.20-6.10); RDW 13.9 % (11.5-14.5); WBC 6.8 10x3/uL (4.8-10.8)
[2018-03-08 10:11] LABS: ANION GAP 16.2 mmol/L (8-16); CALCIUM 8.8 mg/dL (8.5-10.1); CARBON DIOXIDE 24.3 mmol/L (21.0-32.0); CREATININE - SERUM 1.9 mg/dL (0.6-1.3); POTASSIUM - SERUM 4.5 mmol/L (3.5-5.1)
== END 2018-03-08 15:45 | disposition home or self-care (01) ==
LOC: D.CATH 09:00
PROVIDERS: Internal Medicine Interventional Cardiology
DX: I25.110 Atherosclerotic heart disease of native coronary artery with unstable angina pectoris (principal); Z01.812 Encounter for preprocedural laboratory examination
CPT/HCPCS: 93458; C9602

== ENCOUNTER 2018-03-15 09:01 | Outpatient (CLI) | payer MEDICARE ==
[~2018-03-15] VITALS: Ht 167.6 cm; Wt 108.6 kg
--- NOTE | ~2018-03-15 | HEMODYNAMI ---
PATIENT:MILLICENT SHERWOOD MEDICAL RECORD: [id number] : 44 LOCATION:[facility] ADMISSION DATE: 03/15/18 Generatedon:03/15/201812:29 Patient name: MILLICENT SHERWOOD Patient #: [id number] SSN: : 1940 Date of study: 03/15/2018 Page: Of Hemodynamic Procedure Report Patient Data Patient Demographics Procedure consent was obtained First Name: MILLICENT Gender: Male Last Name: PRESLEY : 1940 [facility] Initial: J Age: 78 year(s) Patient #: [id number] Race: Unknown Additional ID: [id number] Contact details Address: [address] [address] State: [place] City: [facility] Zip code: [address] Past Medical History Allergies Allergen Reaction Date Comments Reported Other allergy 03/08/2018 nkda Other allergy 03/15/2018 Admission Admission Data Admission Date: 03/15/2018 Admission Time: 9:01 Admit Source: Other Lab Results Lab Result Date: 03/15/2018 Lab Result Time: 9:25 Biochemistry Name Units Result Min Max BUN mg/dl 40 --(----)-* 7 18 Creatinine mg/dl 1.9 --(----)-* 0.6 1.3 CBC Name Units Result Min Max Hematocrit % 35 *-(----)-- 42 54 Hemoglobin g/dl 12.1 *-(----)-- 13.5 17.5 Procedure Procedure Types Cath Procedure Diagnostic Procedure PCI Procedure Coronary Stent Coronary Stent Initial Procedure Description Procedure Date Procedure Date: 03/15/2018 Procedure Start Time: 12:14 Procedure End Time: 12:26 Procedure Staff Name Function Shamir Ames MD Performing Physician Braulio Luna RN Nurse Armaan Mendoza RT Monitor Astrid Morales RT Scrub Yassine Ashby RT Blind Hanger Procedure Data Cath Procedure Fluoroscopy Diagnostic fluoroscopy Total fluoroscopy Time: 1.4 time: 1.4 min min Diagnostic fluoroscopy Total fluoroscopy dose: 298 dose: 298 mGy mGy Contrast Material Contrast Material Type Amount (ml) Isovue 300 32 Entry Location Entry Primary Successful Side Size Upsize Upsize Entry Closure Brownlee ccessful Closure Location (Fr) 1 (Fr) 2 (Fr) Remarks Device Remarks Radial Right 6 Fr Mechanical artery Short Compression Estimated blood loss: 10 ml Procedure Complications No complications Procedure Medications Medication Administration Route Dosage 0.9% NaCl I.V. 100 ml/hr Oxygen etCO2 Nasal cannula 2 l/min Heparin Flush Bag added to field 2 bags (1000units/500ml NS) Lidocaine 2% added to field 20 Radial Cocktail added to field 1 syringe (Verapomil 2mg/Nitro 400mcg/Heparin 1500units) Versed I.V. 1 mg Fentanyl I.V. 50 mcg Fentanyl I.V. 50 mcg Heparin Bolus I.V. 4000 units Hemodynamics Rest HGB: 12.1 (g/dl) Heart Rate: 55 (bpm) Snapshots Pre Cath Intra NCS Post Cath Vital Signs Time Heart Resp SPO2 etCO2 NIBP (mmHg) Rhythm Pain Sedation Rate (ipm) (%) (mmHg) Status Level (bpm) 12:13:04 51 17 94 0 160/82(130) NSR 0 (11) 10(A) , No pain 12:17:22 50 12 98 0 140/70(109) NSR 0 (11) 10(A) , No pain 12:21:42 52 12 95 0 142/73(116) NSR 0 (11) 9(A) , No pain 12:26:43 98 0 No Cuff NSR 0 (11) 9(A) , No pain Medications Time Medication Route Dose Verified Delivered Reason Not es Effectiveness by by 12:06:47 0.9% NaCl I.V. 100 Braulio Braulio Per physician ml/hr Jeremy Luna RN RN 12:06:57 Oxygen etCO2 2 l/min Braulio Braulio Per physician Nasal Shayleeigan Jeremy cannula RN RN 12:07:10 Heparin Flush added 2 bags Braulio Braulio used for Bag to Lorigan Lorigan procedure (1000units/500ml field RN RN NS) 12:07:27 Lidocaine 2% added 20ml Braulio Braulio for local to vial Lorigan Lorigan anesthetic field RN RN 12:07:35 Radial Cocktail added 1 Braulio Braulio used for (Verapomil to syringe Lorigan Lorigan procedure 2mg/Nitro field RN RN 400mcg/Heparin 1500units) 12:14:31 Versed I.V. 1 mg Braulio Braulio for sedation Jeremy Luna RN RN 12:14:40 Fentanyl I.V. 50 mcg Braulio Braulio for sedation Jeremy Luna RN RN 12:15:47 Fentanyl I.V. 50 mcg Braulio Braulio for sedation Jeremy Luna RN RN 12:17:23 Heparin Bolus I.V. 4000 Braulio Braulio for units Jeremy Luna anticoagulation RN microwave supervisor Log Time Note 11:42:44 Informed consent obtained and on chart 11:42:47 Admit Source: Other 11:43:15 Diagnostic Cath status Elective 11:43:17 Yassine Ashby RT(R) sent for patient. Start room use. 11:43:18 Time tracking: Regular hours (M-F 7:00 - 5:00) 11:43:22 Plan of Care:Hemodynamics will remain stable., Cardiac rhythm will remain stable., Comfort level will be maintained., Respiratory function will remain adequate., Patient/ family verbilizes understanding of procedure., Procedure tolerated without complication., Recovers from procedure without complications.. 11:45:28 Lab Result : BUN 40 mg/dl 11:45:28 Lab Result : Hemoglobin 12.1 g/dl 11:45:28 Lab Result : Creatinine 1.9 mg/dl 11:45:28 Lab Result : Hematocrit 35 % 11:45:31 Lab results completed and on chart. 11:57:00 Patient received from Pre/Post Procedure Room to CCL 2 Alert and oriented. Tansferred to table in Supine position. 11:57:01 Warm blankets applied, and eliseo hugger turned on for patient comfort. 11:57:01 Correct patient and procedure confirmed by team. 11:57:02 ECG and BP/O2 sat monitors applied to patient. 11:58:27 H&P Date Dictated: 03/07/2018 Within 30 days and on chart., H&P Addendum completed by physician on day of procedure. (MUST COMPLETE FOR ALL OUTPATIENTS). 12:02:12 Previous problem with sedation/anesthesia? No ? 12:02:14 Snore? Yes 12:02:18 Sleep apnea? No 12:02:19 Deviated septum? No 12:02:19 Opens mouth fully? Yes 12:02:20 Sticks out tongue? Yes 12:02:23 Airway obstruction? No ? 12:02:31 Dentures? Yes out 12:02:35 Modified Villa's test Ulnar < 7 seconds 12:02:37 Patient pain scale 0/10 ?. 12:02:46 IV patent on arrival in left hand with 0.9% NaCl at KVO. 12:02:50 Right Radial & Right Groin area was prepped with chlora-prep and draped in sterile fashion 12:02:51 Alarms reviewed by R. N. 12:02:52 Sharps counted by scrub and verified by R.N. 12:02:55 Pre-procedure instructions explained to patient. 12:02:55 Pre-op teaching completed and patient verbalized understanding. 12:02:57 Family in waiting room. 12:02:58 Patient NPO since Midnight. 12:03:06 Patient allergic to Other allergy 12:03:08 Is the patient allergic to Iodine/contrast media? No. 12:03:09 Is patient on blood thinner?Yes 12:03:11 ACC The patient was administered the following blood thiners within the last 24 hours: ACCPlavix 12:03:12 Patient diabetic? Yes. 12:03:18 If diabetic: On Metformin? No 12:03:23 Use device set Radial Dx or PCI 12:03:23 ACIST Syringe (76286) opened to sterile field. 12:03:24 Medline Cath Pack ([id number]) opened to sterile field. 12:03:24 Bag Decanter (2002) opened to sterile field. 12:03:25 ACIST Hand Control (47932) opened to sterile field. 12:03:26 ACIST Manifold (96710) opened to sterile field. 12:03:26 Tegaderm 4 x 4 (1626W) opened to sterile field. 12:03:26 MBrace Wrist Support ([id number]) opened to sterile field. 12:03:27 SHEATH 6Fr Prelude Radial ([id number]) opened to sterile field. 12:03:28 DIAGNOSTIC WIRE .035 260cm J wire (904976) opened to sterile field. 12:06:47 0.9% NaCl 100 ml/hr I.V. was administered by Braulio Luna RN; Per physician; 12:06:57 Oxygen 2 l/min etCO2 Nasal cannula was administered by Braulio Luna RN; Per physician; 12:07:10 Heparin Flush Bag (1000units/500ml NS) 2 bags added to field was administered by Braulio Luna RN; used for procedure; 12:07:27 Lidocaine 2% 20ml vial added to field was administered by Braulio Luna RN; for local anesthetic; 12:07:35 Radial Cocktail (Verapomil 2mg/Nitro 400mcg/Heparin 1500units) 1 syringe added to field was administered by Braulio Luna RN; used for procedure; 12:07:39 Vital chart was started 12:11:22 Baseline sample Acquired. 12:11:26 Rhythm: sinus rhythm 12:11:36 Zero performed for pressure channel P1 12:11:39 Zero performed for pressure channel P1 12:11:45 Zero performed for pressure channel P1 12:11:47 Zero performed for pressure channel P1 12:13:13 Physician arrived 12:13:14 Final Timeout: patient, procedure, and site verified with staff and physician. All members of the team are in agreement. 12::14 --------ALL STOP TIME OUT------ 12:13:16 Right Radial & Right Groin site verified by team. 12:13:19 Physical assessment completed. ASA score P 2 - A patient with mild systemic disease as per Shamir Ames MD. 12:13:21 Sedation plan: IV Moderate Sedation Medication:Versed, Fentanyl 12:14:31 Versed 1 mg I.V. was administered by Braulio Luna RN; for sedation; 12:14:40 Fentanyl 50 mcg I.V. was administered by Braulio Luna RN; for sedation; 12:14:52 Procedure started. 12:14:52 Full Disclosure recording started 12:14:56 Local anesthetic to right radial artery with Lidocaine 2% by Shamir Ames MD.INITIAL ACCESS ONLY 12:15:03 A 6 Fr Short sheath was inserted into the Right Radial artery 12:15:11 CHOICE PT Extra Support 182cm wire ([id number]) opened to sterile field. 12:15:12 INFLATOR Merit BasixCompak (BO7174) opened to sterile field. 12:15:32 GUIDE 6FR XBLAD 3.5 catheter ([id number]) opened to sterile field. 12:15:44 6 Fr xblad 3.5 guide catheter was inserted over the wire 12:15:47 Fentanyl 50 mcg I.V. was administered by Braulio Luna RN; for sedation; 12:16:57 choice pt es wire advanced. 12:17:23 Heparin Bolus 4000 units I.V. was administered by Braulio Luna RN; for anticoagulation; 12:18:40 Wire advanced across lesion. 12:19:22 Place stent Inflation Number: 1 A PENG RX 3.0 x 30 stent ([id number]) was prepped and advanced across the Mid LAD. The stent was deployed at 17 SHAILESH for 0:10 (min:sec). 12:19:38 Stent catheter was removed intact over wire. 12:19:39 Wire removed. 12:19:44 Guide catheter removed. 12:20:40 TR BAND Standard ([id number]) opened to sterile field. 12:20:50 Sheath removed intact; hemostasis achieved with Mechanical Compression to the Right Radial artery. 12:20:51 Procedure ended.(Physican Out) 12:24:57 Fluoroscopy time 01.40 minutes. 12:25:00 Fluoroscopy dose: 298 mGy 12:25:00 Flurop Dose total: 298 12:25:04 Contrast amount:Isovue 300 32ml. 12:25:06 Sharps counted by scrub and verified by R.N. 12:25:25 TR band inflated with 12cc of air. 12:25:26 Insertion/operative site no bleeding no hematoma. 12:25:36 Post right radial artery:stable, soft, clean and dry 12:25:41 Post-procedure physical assessment completed. ASA score P 2 - A patient with mild systemic disease as per Shamir Ames MD. 12:25:48 Post procedure rhythm: unchanged. 12:25:50 Estimated blood loss: 10 ml 12:25:51 Post procedure instruction explained to patient.Patient verbalizes understanding. 12:25:51 Patient needs reinforcement of post procedure teaching. 12:26:00 Procedure type changed to Cath procedure, Diagnostic procedure, PCI procedure, Coronary Stent, Coronary Stent Initial 12::25 Procedure and supply charges have been captured, reviewed, submitted and are correct. 12:: Procedure Complication : No complications 12:: Vital chart was stopped 12::29 See physician's report for complete and final results. 12:26:33 Report given to Pre/Post Procedure Room. 12:26:35 Patient transfered to Pre/Post Procedure Room with Stretcher. 12:26:37 Procedure ended. 12:26:37 Full Disclosure recording stopped 12:26:40 End room use (Document Last) Intervention Summary Intervention Notes Time ActionType Lesion and Equipment Used Action# Pressure Duration Attributes 12:19:22 Place stent Mid LAD PENG RX 3.0 x 1 17 00:10 30 stent ([id number]) Device Usage Item Name Manufacture Quantity Catalog Number Hospital Part Current Minimal Lot# / Charge Number Stock Stock Serial# Code ACIST Syringe Acist 1 93095 389925 194726 115288 20 (90455) Medical Systems Inc Medline Cath Cardinal 1 [id number] 238153 86913 572404 5 Pack Health ([id number]) Bag Decanter Microtek 1 2001S 436434 06402 312026 5 (2001S) Medical Inc. ACIST Hand Acist 1 48646 167283 933847 021376 5 Control (61633) Medical Systems Inc ACIST Manifold Acist 1 54339 522154 887808 346860 5 (75141) Medical Systems Inc Tegaderm 4 x 4 3M 1 1626W 059898 818250 362938 5 (1626W) MBrace Wrist Advanced 1 140-0250-00 303397 80068 398338 5 Support Vascular ([id number]) Dynamics SHEATH 6Fr Merit 1 [id number] 482912 384452 532662 5 Prelude Radial Medical ([id number]) DIAGNOSTIC WIRE St Tez 1 710452 278436 200063 517935 30 .035 260cm J wire (213011) CHOICE PT Extra [place] 1 [id number] 590230 372384 471931 5 Support 182cm Scientific wire ([id number]) INFLATOR Merit Merit 1 XM7375 129458 497697 599824 15 BasixPcssomeMexxBooks Medical (IR4401) GUIDE 6FR XBLAD Cardinal 1 [id number] 270769 274670 776974 10 3.5 catheter Health ([id number]) PENG RX 3.0 x Medtronic 1 [id number] 179533 1989161 831006 5 [id number] 30 stent ([id number]) TR BAND Terumo 1 [id number] 004831 992539 189100 40 Standard ([id number]) Signature Audit Early Stage Time Signature Unsigned Intra-Procedure 03/15/2018 Armaan Mendoza 12:29:22 PM RT(R) Signatures Monitor : Armaan Mendoza RT Signature : Date : Time : [id number] [place] [address]
--- NOTE | ~2018-03-15 | OP ---
PATIENT NAME: MILLICENT SHERWOOD MEDICAL RECORD: [id number] :44 LOCATION:D.CAT ADMISSION DATE: SURGEON: KRISTA IBANEZ MD DATE OF OPERATION: 03/15/2018 PROCEDURES: 1. PTCA stent LAD. 2. Selective coronary angiography. INDICATION: Angina and coronary artery disease. PROCEDURE IN DETAIL: After informed consent was obtained and after a detailed description of risks, benefits as well as alternative therapies, the patient elected to proceed with angiogram and angioplasty. The right radial area was prepped and draped in normal sterile fashion. Right radial artery was cannulated via modified Seldinger technique with placement of 6-Belarusian sheath. All catheters exchanged through this sheath. FINDINGS: The left anterior descending has 2 areas of 80% and 90% in-stent restenosis. These were both covered with a 3.0 x 30 mm Danie stent. Result was 0% residual stenosis. OVERALL IMPRESSION: Successful percutaneous transluminal coronary angioplasty stent of the left anterior descending going from 90% initial stenosis that was in-stent restenosis to 0% residual stenosis. TRANSINT:[id number] Voice Confirmation ID: [id number] DOCUMENT ID: [id number] KRISTA IBANEZ MD at 1859 CC: [id number] DICTATION DATE: 03/15/18 1224 HYDROGEN TREATER: 03/15/18 1231 DEP CLI 03/15/18 [address] [place] [address]
[~2018-03-15 09:01] MED LIST changes: +CARDURA2 MG PO; +COZAAR50 MG PO; +DOXYCYCLINE HYC75 MG PO; +TOUJEO SOL300 UNIT/1 SC
[2018-03-15 09:18] VITALS: BP 171/67; Ht 167.6 cm; Wt 108.6 kg
[2018-03-15 09:29] LABS: BASOPHILS 0.9 % (0-2); EOSINOPHILS 4.6 % (0-7); HEMOGLOBIN 12.1 g/dL (13.5-17.5); IMMATURE GRANULOCYTES 0.3 % (0-5); LYMPHOCYTES 25.4 % (15-50); MCH 31.3 pg (26.0-34.0); MCHC 34.6 g/dL (31.0-37.0); MCV 90.4 fL (80.0-100.0); MEAN PLATELET VOLUME 11.5 fL (7.4-10.4); MONOCYTES 12.3 % (2-11); NEUTROPHILS 56.5 % (40-80); PLATELET COUNT 179 10x3/uL (130-400); RBC 3.87 10x6/uL (4.20-6.10); WBC 5.8 10x3/uL (4.8-10.8)
[2018-03-15 09:37] LABS: ANION GAP 14.3 mmol/L (8-16); CALCIUM 8.6 mg/dL (8.5-10.1); CARBON DIOXIDE 23.2 mmol/L (21.0-32.0); CREATININE - SERUM 1.9 mg/dL (0.6-1.3); POTASSIUM - SERUM 4.5 mmol/L (3.5-5.1)
== END 2018-03-15 16:45 | disposition home or self-care (01) ==
LOC: D.CATH 09:01
PROVIDERS: Internal Medicine Interventional Cardiology
DX: I25.110 Atherosclerotic heart disease of native coronary artery with unstable angina pectoris (principal)

== ENCOUNTER → 2018-03-26 10:05 | Outpatient (CLI) | payer MEDICARE ==
[2018-03-15 09:18] VITALS: BMI 38.6
[2018-03-26 11:10] LABS: THYROID STIMULATING HORMONE 4.9 uIU/mL (0.36-3.74)
== END | disposition home or self-care (01) ==
LOC: D.LAB 10:05
PROVIDERS: Family Medicine
DX: E11.9 Type 2 diabetes mellitus without complications (principal); Z00.00 Encounter for general adult medical examination without abnormal findings; Z12.5 Encounter for screening for malignant neoplasm of prostate

== ENCOUNTER → 2018-07-31 11:50 | Outpatient (CLI) | payer MEDICARE ==
[2018-03-15 09:18] VITALS: BMI 38.6
[2018-07-31 13:25] LABS: CALCIUM 9.7 mg/dL (8.5-10.1); CREATININE - SERUM 2.3 mg/dL (0.6-1.3); THYROID STIMULATING HORMONE 2.06 uIU/mL (0.36-3.74)
== END | disposition home or self-care (01) ==
LOC: D.LAB 11:50
PROVIDERS: Family Medicine
DX: I25.10 Atherosclerotic heart disease of native coronary artery without angina pectoris (principal); I10 Essential (primary) hypertension; E11.9 Type 2 diabetes mellitus without complications

== ENCOUNTER → 2018-10-02 09:55 | Outpatient (CLI) | payer MEDICARE ==
[2018-03-15 09:18] VITALS: BMI 38.6
== END | disposition home or self-care (01) ==
LOC: D.RAD 09:55
PROVIDERS: ATTEND Family Medicine
DX: M45.4 Ankylosing spondylitis of thoracic region (principal); M25.551 Pain in right hip

== ENCOUNTER → 2019-03-19 12:03 | Outpatient (CLI) | payer MEDICARE ==
[2018-03-15 09:18] VITALS: BMI 38.6
[2019-03-19 12:42] LABS: BASOPHILS 0.8 % (0-2); HEMATOCRIT 31.6 % (42.0-54.0); HEMOGLOBIN 10.3 g/dL (13.5-17.5); MCH 30.4 pg (26.0-34.0); MCHC 32.6 g/dL (31.0-37.0); MCV 93.2 fL (80.0-100.0); MEAN PLATELET VOLUME 10.9 fL (7.4-10.4); MONOCYTES 11.2 % (2-11); PLATELET COUNT 163 10x3/uL (130-400); RBC 3.39 10x6/uL (4.20-6.10); RDW 13.7 % (11.5-14.5); WBC 6.3 10x3/uL (4.8-10.8)
[2019-03-19 13:02] LABS: ALBUMIN 3.2 g/dL (3.4-5.0); ANION GAP 12.8 mmol/L (8-16); BILIRUBIN - TOTAL 0.4 mg/dL (0.2-1.3); CALCIUM 8.6 mg/dL (8.5-10.1); CARBON DIOXIDE 26.9 mmol/L (21.0-32.0); CHOL - HDL RATIO 3.5 ratio (2.3-4.9); CREATININE - SERUM 2.4 mg/dL (0.6-1.3); LDL-HDL RATIO 1.3 ratio (1.5-3.5); POTASSIUM - SERUM 4.7 mmol/L (3.5-5.1); THYROID STIMULATING HORMONE 3.65 uIU/mL (0.36-3.74)
== END | disposition home or self-care (01) ==
LOC: D.LAB 12:03
PROVIDERS: ATTEND Family Medicine
DX: I25.10 Atherosclerotic heart disease of native coronary artery without angina pectoris (principal); I10 Essential (primary) hypertension; E11.9 Type 2 diabetes mellitus without complications; E03.9 Hypothyroidism, unspecified; L03.90 Cellulitis, unspecified

== ENCOUNTER 2020-02-03 14:17 | Inpatient (IN) | payer MEDICARE ==
[~2020-02-03] VITALS: Ht 167.6 cm; Wt 108.9 kg
--- NOTE | ~2020-02-03 | OP ---
PATIENT NAME: MILLICENT SHERWOOD MEDICAL RECORD: [id number] :44 LOCATION:.[facility] D.2314 ADMISSION DATE:02/03/20 SURGEON: NICHOLAS KULKARNI MD DATE OF OPERATION: 02/05/2020 PREOPERATIVE DIAGNOSES: 1. Acute respiratory failure on the ventilator. 2. Coronary artery disease. 3. Presumptive Covid. 4. Acute renal failure. POSTOPERATIVE DIAGNOSES: 1. Acute respiratory failure on the ventilator. 2. Coronary artery disease. 3. Presumptive Covid. 4. Acute renal failure. PROCEDURE: Left subclavian vein triple-lumen central venous line placement. SURGEON: Nicholas Kulkarni MD REPORT OF PROCEDURE: The patient's left chest was prepped and draped in sterile fashion. A needle was used to cannulate the left subclavian vein. A guidewire was advanced with ease. Over this wire, a dilator was placed followed by the triple lumen catheter. The catheter initially did not drop back very well, but as we pulled the catheter back, we eventually got a good backflow and easy flushing with normal saline. The catheter was then sutured into place with 4-0 nylons times 4 and dressed appropriately. COMPLICATIONS: None. CONDITION: Critical. ANESTHESIA: General endotracheal. BLOOD LOSS: Minimal. Procedure done in the ICU at the bedside. TRANSINT:[id number] Voice Confirmation ID: [id number] DOCUMENT ID: [id number] NICHOLAS KULKARNI MD CC: [id number] DICTATION DATE: 02/05/20 1600 GENERAL ACCOUNTING CLERK: 02/05/20 2150 [id number] [place] [address]
[2020-02-03] MEDS ORDERED: CHLORTHALIDONE25 MG PO (14:35)
[2020-02-03 14:36] VITALS: BP 162/70
[2020-02-03] MEDS ORDERED: LEVOXYL25 MCG PO (14:36)
[2020-02-03 14:49] LABS: BASOPHILS 0.2 % (0-2); EOSINOPHILS 0.9 % (0-7); HEMATOCRIT 32.8 % (42.0-54.0); HEMOGLOBIN 10.7 g/dL (13.5-17.5); IMMATURE GRANULOCYTES 0.2 % (0-5); LYMPHOCYTES 16.9 % (15-50); MCH 30.6 pg (26.0-34.0); MCHC 32.6 g/dL (31.0-37.0); MCV 93.7 fL (80.0-100.0); MONOCYTES 13.4 % (2-11); NEUTROPHILS 68.4 % (40-80); PLATELET COUNT 159 10x3/uL (130-400); RDW 13.9 % (11.5-14.5); WBC 6.6 10x3/uL (4.8-10.8)
[2020-02-03 15:04] LABS: INR 0.99 (0.85-1.17); PROTIME 13.1 SECONDS (11.6-15.0)
[2020-02-03 15:05] LABS: CALC OSMOLALITY 291 mosm/kg (275-300); CALCIUM 8.3 mg/dL (8.5-10.1); CARBON DIOXIDE 20.7 mmol/L (21.0-32.0); CHLORIDE - SERUM 101 mmol/L (98-107); CREATININE - SERUM 3.4 mg/dL (0.6-1.3); GLUCOSE 175 mg/dL (74-106); POTASSIUM - SERUM 4.6 mmol/L (3.5-5.1); SODIUM 134 mmol/L (136-145); UREA NITROGEN 69 mg/dL (7-18); eGFR NON AFRICAN AMERICAN 19 mL/min (90-120)
[2020-02-03 15:30] VITALS: BP 165/72
[2020-02-03 15:58] LABS: ALBUMIN 2.8 g/dL (3.4-5.0); ALKALINE PHOSPHATASE 76 U/L (30-120); ALT (SGPT) 22 U/L (10-68); BILIRUBIN - TOTAL 0.55 mg/dL (0.2-1.3); CKMB 3.9 U/L (0.0-3.6); CREATINE KINASE 282 UL (21-232); PRO BNP 2318 pg/mL (0-450); PROTEIN - SERUM 7.4 g/dL (6.4-8.2)
[2020-02-03 16:19] LABS: FERRITIN 1279 ng/mL (3-244); TROPONIN-I < 0.017 ng/mL (0.000-0.060)
[2020-02-03 16:30] VITALS: BP 167/68
[2020-02-03 20:00] VITALS: BP 178/76
--- NOTE | 2020-02-03 20:34 | NUR ---
PT ASSISTED INTO BED AFTER USING BEDSIDE COMMADE. NO ACUTE DISTRESSNOTED, NO NEEDS EXPRESSED AT THIS TIME.
[2020-02-03 22:30] VITALS: BP 181/83
--- NOTE | 2020-02-03 22:52 | NUR ---
PT PROVIDED WITH WATER PER REQUEST AT THIS TIME. PT DENIES FOOD AT THIS TIME. PT INSTRUCTED TO CALL NURSE IF HE CHANGES MIND.
[2020-02-04] VITALS (8 sets, daily range): BP systolic 100–176; BP diastolic 60–72
--- NOTE | 2020-02-04 01:20 | NUR ---
RECEIVED PATIENT TO ROOM 2137 VIA W/C PATIENT IS AAOX4, UP WITH STAND BY ASSIST. NO S/S OF DISTRESS OBSERVED, DYSPNEA ON EXERTION OBSERVED PATIENT ON 4L O2 VIA NC. QUICK START, ADULT HX, MED REC, SRS, FPOC COMPLETED. ASSISTED PATIENT TO CHAIR. PATIENT DENIES FURTHER NEEDS AT THIS TIME. CL IN REACH, BED LOCKED AND LOWERED. WILL CTM.
--- NOTE | 2020-02-04 01:26 | NUR ---
NO TELEMETRY AVAILABLE AT THIS TIME.
[2020-02-04 06:30] LABS: BASOPHILS 0.2 % (0-2); EOSINOPHILS 0 % (0-7); HEMATOCRIT 32.4 % (42.0-54.0); HEMOGLOBIN 10.8 g/dL (13.5-17.5); IMMATURE GRANULOCYTES 0.4 % (0-5); LYMPHOCYTES 14.7 % (15-50); MCH 30.7 pg (26.0-34.0); MCHC 33.3 g/dL (31.0-37.0); MEAN PLATELET VOLUME 11.2 fL (7.4-10.4); MONOCYTES 9.9 % (2-11); NEUTROPHILS 74.8 % (40-80); PLATELET COUNT 173 10x3/uL (130-400); RBC 3.52 10x6/uL (4.20-6.10); RDW 13.7 % (11.5-14.5)
[2020-02-04 06:46] LABS: WBC 4.8 10x3/uL (4.8-10.8)
[2020-02-04 07:08] LABS: ALBUMIN 2.6 g/dL (3.4-5.0); ALKALINE PHOSPHATASE 78 U/L (30-120); ALT (SGPT) 23 U/L (10-68); CALC OSMOLALITY 301 mosm/kg (275-300); CALCIUM 8.2 mg/dL (8.5-10.1); CARBON DIOXIDE 18.6 mmol/L (21.0-32.0); CHLORIDE - SERUM 102 mmol/L (98-107); CREATINE KINASE 329 UL (21-232); CREATININE - SERUM 3.3 mg/dL (0.6-1.3); POTASSIUM - SERUM 5.1 mmol/L (3.5-5.1); PROTEIN - SERUM 7.2 g/dL (6.4-8.2); SODIUM 134 mmol/L (136-145); TROPONIN-I 0.019 ng/mL (0.000-0.060); UREA NITROGEN 74 mg/dL (7-18); eGFR NON AFRICAN AMERICAN 19 mL/min (90-120)
[2020-02-04 07:09] LABS: GLUCOSE 322 mg/dL (74-106)
--- NOTE | 2020-02-04 15:53 | NUR ---
PT WITH INCREASED OXYGEN NEEDS. STARTED AT 4 LITERS, MOVED TO 5, UP TO 7 LITERS HIGH FLOW, NOW UP TO 8LHF. DYSPNIA WITH EXERTION AND SATS DROP TO 70'S WHEN UP SO USING URINAL IN BED AND LIMITING EXERTIONAL ACTIVITY.
--- NOTE | 2020-02-04 19:42 | NUR ---
ATTEMPTED TO CALL REPORT TO VU MELCHOR IN ICU, NURSE UNAVAILABLE AT THIS TIME.
--- NOTE | 2020-02-04 21:23 | NUR ---
REPORT GIVEN TO VU MELCHOR IN ICU. PATIENT BEING TRANSFERRED TO ROOM 2314 PER ORDERS.
--- NOTE | 2020-02-04 22:13 | NUR ---
PATIENT ARRIVED TO UNIT ON NONREBREATHER. SATURATION 60% WHEN MOVED ONTO OTHER BED. 52 BREATHS PER MINUTE. PATIENT LABORED BREATHING. PATIENT PUT ON BIPAP. PAGED ROBERT. NEW ORDRES TO PAGE ANESTHESIA.
[2020-02-05] VITALS (27 sets, daily range): BP systolic 67–160; BP diastolic 33–74
[2020-02-05 05:27] LABS: BASOPHILS 0 % (0-2); EOSINOPHILS 0 % (0-7); IMMATURE GRANULOCYTES 0.4 % (0-5); LYMPHOCYTES 7.3 % (15-50); MCH 30.9 pg (26.0-34.0); MCHC 31.9 g/dL (31.0-37.0); MEAN PLATELET VOLUME 10.7 fL (7.4-10.4); MONOCYTES 7.2 % (2-11); NEUTROPHILS 85.1 % (40-80); PLATELET COUNT 161 10x3/uL (130-400); RDW 14.2 % (11.5-14.5)
[2020-02-05 05:37] LABS: HEMOGLOBIN 8.3 g/dL (13.5-17.5); MCV 96.7 fL (80.0-100.0); RBC 2.69 10x6/uL (4.20-6.10); WBC 10.5 10x3/uL (4.8-10.8)
[2020-02-05 05:52] LABS: ANION GAP 16.7 mmol/L (8-16); BILIRUBIN - TOTAL 0.22 mg/dL (0.2-1.3); CARBON DIOXIDE 16.6 mmol/L (21.0-32.0); CHOL - HDL RATIO 5.9 ratio (2.3-4.9); CREATININE - SERUM 2.8 mg/dL (0.6-1.3); LDL-HDL RATIO 2.2 ratio (1.5-3.5); PHOSPHOROUS 4.9 mg/dL (2.5-4.9); POTASSIUM - SERUM 5.3 mmol/L (3.5-5.1); THYROID STIMULATING HORMONE 0.78 uIU/mL (0.36-3.74); TROPONIN-I 0.04 ng/mL (0.000-0.060)
[2020-02-05 05:55] LABS: ALBUMIN 1.9 g/dL (3.4-5.0); PROTEIN - SERUM 5.3 g/dL (6.4-8.2)
[2020-02-05 05:56] LABS: CALCIUM 6.4 mg/dL (8.5-10.1)
[2020-02-05 10:58] LABS: ALBUMIN 2.2 g/dL (3.4-5.0); ANION GAP 16.7 mmol/L (8-16); BILIRUBIN - TOTAL 0.26 mg/dL (0.2-1.3); CALCIUM 7.3 mg/dL (8.5-10.1); CARBON DIOXIDE 18.8 mmol/L (21.0-32.0); PROTEIN - SERUM 6.2 g/dL (6.4-8.2)
[2020-02-05 11:01] LABS: POTASSIUM - SERUM 6.5 mmol/L (3.5-5.1)
--- NOTE | 2020-02-05 18:59 | NUR ---
spoke with family, they wish for pt to be a DNR, INFORMED DR SWIFT
--- NOTE | 2020-02-05 19:00 | NUR ---
BEDSIDE SHIFT ASSESSMENT COMPLETED, PATIENT O2 SATURATION 88% - SYSTOLIC 84 - WITH GOOD A-LINE WAVE FORM, ASSESSMENT COMPLETED, SEDATION REDUCED AT THIS TIME AND SYSTOLIC BP IMPROVED SPO2 > 92% WILL CONTINUE TO CLOSELY MONITOR
[2020-02-05 19:48] LABS: ANION GAP 12.9 mmol/L (8-16); CREATININE - SERUM 4.6 mg/dL (0.6-1.3); POTASSIUM - SERUM 5.9 mmol/L (3.5-5.1)
[2020-02-05 19:54] LABS: CALCIUM 6.7 mg/dL (8.5-10.1)
--- NOTE | 2020-02-05 21:00 | NUR ---
PT SYSTOLIC 60 - 02 SATURATION DROPPED TO 75% - PATIENT SHIVERING. LEVOPHED STARTED AT THIS TIME. ALL MEDICATIONS (ASIDE FROM LEVOPHED) PAUSED, NEW LINES AND MEDICATIONS SWITCHED TO LEFT SUBCLAVIAN CENTRAL LINE. PATIENT STATUS IMPROVED WHILE COMPLETING. SYSTOLIC 120'S SPO2 91% - MEDICATIONS RESTARTED MINUS SEDATION AND LEVOPHED- PATIENT ONCED AGAIN TACHYCARDIC, HYPOXIC, AND HYPOTENSIVE. LEVOPHED RESTARTED ONCE AGAIN, REMDESIVIR PAUSED AGAIN - PT STATUS IMPROVED, LEVOPHED TURNED OFF DUE TO EXCESSIVE SYSTOLIC HTN. WILL CONTINUE TO MONITOR CLOSELY
--- NOTE | 2020-02-05 22:25 | NUR ---
paged dr martinez through service at this time
[2020-02-06] VITALS (57 sets, daily range): BP systolic 67–142; BP diastolic 39–75; Ht 167.6 cm; Wt 108.9 kg
--- NOTE | 2020-02-06 01:10 | NUR ---
1 UNIT CONVALESCENT PLASMA INITIATED AT THIS TIME PER ORDER
--- NOTE | 2020-02-06 05:09 | NUR ---
PARTIAL CHG BATH COMPLETED AT THIS TIME. PT DOES NOT TOLERATE EVEN MINIMAL MOVEMENT.
[2020-02-06 05:15] LABS: BASOPHILS 0.1 % (0-2); EOSINOPHILS 0 % (0-7); HEMATOCRIT 28.3 % (42.0-54.0); IMMATURE GRANULOCYTES 0.5 % (0-5); LYMPHOCYTES 5.7 % (15-50); MCH 30.9 pg (26.0-34.0); MCHC 31.8 g/dL (31.0-37.0); MCV 97.3 fL (80.0-100.0); MEAN PLATELET VOLUME 11.1 fL (7.4-10.4); MONOCYTES 10.1 % (2-11); NEUTROPHILS 83.6 % (40-80); PLATELET COUNT 183 10x3/uL (130-400); RBC 2.91 10x6/uL (4.20-6.10); RDW 14.7 % (11.5-14.5); WBC 12.1 10x3/uL (4.8-10.8)
[2020-02-06 05:57] LABS: ALBUMIN 2.3 g/dL (3.4-5.0); ANION GAP 14.7 mmol/L (8-16); BILIRUBIN - DIRECT 0.08 mg/dL (0.00-0.30); BILIRUBIN - INDIRECT 0.14 mg/dL (0.00-1.00); BILIRUBIN - TOTAL 0.22 mg/dL (0.2-1.3); CALCIUM 7.3 mg/dL (8.5-10.1); CARBON DIOXIDE 22.9 mmol/L (21.0-32.0); CREATININE - SERUM 4.8 mg/dL (0.6-1.3); POTASSIUM - SERUM 5.6 mmol/L (3.5-5.1); PROTEIN - SERUM 6.4 g/dL (6.4-8.2)
[2020-02-06 05:59] LABS: MAGNESIUM - SERUM 2.6 mg/dL (1.8-2.4); PHOSPHOROUS 7.5 mg/dL (2.5-4.9)
--- NOTE | 2020-02-06 07:15 | NUR ---
PT REPORT RECEIVED FROM PROPAGATION MANAGER NURSE. NO ACUTE SIGNS OF DISTRESS NOTED. PT RESTING IN BED SEDATED ON VENT. SHIFT ASSESSMENT COMPLETED. WILL CONTINUE TO MONITOR
--- NOTE | 2020-02-06 09:00 | NUR ---
PT RESTING IN BED. NO SIGNS OF DISTRESS NOTED. VSS. WILL CONTINUE TO MONITOR
--- NOTE | 2020-02-06 09:38 | NUR ---
INCREASE PEEP AT [address] PRERNA MASTERSON
[2020-02-06 13:48] LABS: CALCIUM 7.2 mg/dL (8.5-10.1); CARBON DIOXIDE 24.3 mmol/L (21.0-32.0); CREATININE - SERUM 5.1 mg/dL (0.6-1.3); POTASSIUM - SERUM 5.3 mmol/L (3.5-5.1)
--- NOTE | 2020-02-06 14:31 | NUR ---
NOTIFIED DR SWIFT OF BUN AND CREATININE LEVELS. AWAITING ORDERS. WILL CONTINUE TO MONITOR
--- NOTE | 2020-02-06 16:00 | NUR ---
FAMILY AT BEDSIDE. UPDATE GIVEN. ANSWERED QUESTIONS. GAVE AND SON A MOMENT TO LOOK AT THE PT. PROVIDED TISSUES. NO NEW DIRECTIVES FROM PT FAMILY. WILL CONTINUE TO MONITOR
--- NOTE | 2020-02-06 19:00 | NUR ---
SHIFT ASSESSMENT COMPLETED SEE FLOWSHEET
--- NOTE | 2020-02-06 20:35 | NUR ---
PHARMACY CONTACTED AT THIS TIME REGARDING VEC DRIP FOR PM SHIFT.
--- NOTE | 2020-02-06 21:03 | NUR ---
PHYSICIAN NOTIFIED REGARDING PATIENT 02 SATURATION
--- NOTE | 2020-02-06 21:15 | NUR ---
DR JONES RETURNED PAGE, NEW ORDERS RECEIVED
--- NOTE | 2020-02-06 21:27 | NUR ---
BLOOD BANK CALLED - PLASMA IS HERE AND READY TO THAW WHEN IT IS ORDERED TO GIVE
[2020-02-07] VITALS (50 sets, daily range): BP systolic 74–180; BP diastolic 51–80
--- NOTE | 2020-02-07 02:10 | NUR ---
RT AT BEDSIDE VENT CHANGES MADE
--- NOTE | 2020-02-07 02:53 | NUR ---
PT 02 SATURATION IMPROVEMENT - FROM 83% - 86%
--- NOTE | 2020-02-07 05:30 | NUR ---
PT DISTRESS NOTED, PULSE OX DROPPED TO 81% VENTILATOR ALARMING AND DECREASED TIDAL VOLUMES. RT TO BEDSIDE FOR ASSESSMENT AND INTERVENTION.
--- NOTE | 2020-02-07 06:00 | NUR ---
PT SPO2 INCREASED TO 87% AT THIS TIME. VSS CPOC
[2020-02-07 06:29] LABS: APTT 40.4 SECONDS (22.8-39.4); INR 1.21 (0.85-1.17); PROTIME 15.3 SECONDS (11.6-15.0)
[2020-02-07 06:33] LABS: BASOPHILS 0.1 % (0-2); EOSINOPHILS 0 % (0-7); HEMATOCRIT 29.8 % (42.0-54.0); HEMOGLOBIN 9.4 g/dL (13.5-17.5); IMMATURE GRANULOCYTES 0.3 % (0-5); LYMPHOCYTES 3.1 % (15-50); MCH 31.3 pg (26.0-34.0); MCHC 31.5 g/dL (31.0-37.0); MEAN PLATELET VOLUME 11.1 fL (7.4-10.4); NEUTROPHILS 91.5 % (40-80); PLATELET COUNT 171 10x3/uL (130-400)
[2020-02-07 06:34] LABS: MCV 99.3 fL (80.0-100.0); WBC 17.4 10x3/uL (4.8-10.8)
[2020-02-07 06:57] LABS: ALBUMIN 1.8 g/dL (3.4-5.0); ANION GAP 17.9 mmol/L (8-16); BILIRUBIN - DIRECT 0.16 mg/dL (0.00-0.30); BILIRUBIN - INDIRECT 0.21 mg/dL (0.00-1.00); BILIRUBIN - TOTAL 0.37 mg/dL (0.2-1.3); CARBON DIOXIDE 24.5 mmol/L (21.0-32.0); CREATININE - SERUM 5.4 mg/dL (0.6-1.3); MAGNESIUM - SERUM 2.2 mg/dL (1.8-2.4); PHOSPHOROUS 8.4 mg/dL (2.5-4.9); POTASSIUM - SERUM 5.4 mmol/L (3.5-5.1)
[2020-02-07 06:59] LABS: CALCIUM 6.3 mg/dL (8.5-10.1); TROPONIN-I 0.408 ng/mL (0.000-0.060)
--- NOTE | 2020-02-07 07:10 | NUR ---
REPORT RECEIVED FROM OFF GOING NURSE AND PATIENT CARE ASSUMED. PATIEN LAYING IN BED ON BACK WITH HOB ELEVATED 30 DEGREES. PAIENT HAS NAVARRO INTACT AND DRAINING CLEAR YELLOW URINE. PAIENT IS SEDATEAND ON VENT. ALBERTA WRIST RESRAINTS IN PLACE. WILL CONTINUE WITH PLAN OF CARE. SR UPX 2 BED IN LOW POSIION.
--- NOTE | 2020-02-07 07:24 | NUR ---
CALLED CRITICAL LAB VALUE CALLED TO DR SWIFT AT THIS TIME, NEW ORDERS RECEIVED
--- NOTE | 2020-02-07 17:19 | NUR ---
PATIENT FAMILY CALLED AT 1045. STATED THAT ASTRID WOULD NOT WANT TO BE ON THE VENTILATOR AND REQUEST THAT PATIENT BE TERMINALLY EXTUBATED. NOTIFIED DR JONES AND ORDERS RECEIVED. PATIENT FAMILY ARRIVED AT 1445. PER ORDER PATIENT ADMINISTERED MORPHINE 10 MG IV. PATIENT EXTUBATED AT 1510. PATIENT AT 1525. DR JONES NOTIFIED. DR TRICIA MOSELEY. NOTIFIED KERRY EMILI MORENO [facility] [place]. NOTIFIED SHENANDOAH JAREK WILLIS.
== END 2020-02-07 18:00 | DRG 208 ==
LOC: D.ER 14:17 → D.M2 23:11 → D.ICU 23:11
PROVIDERS: Family Medicine; Internal Medicine; Internal Medicine Pulmonary Disease; Legal Medicine; ADMIT Family Medicine; ATTEND Family Medicine
PROC: 5A1945Z Respiratory Ventilation, 24-96 Consecutive Hours (ICD-10-PCS; 2020-02-04)
PROC: 0BH17EZ Insertion of Endotracheal Airway into Trachea, Via Natural or Artificial Opening (ICD-10-PCS; 2020-02-04)
PROC: 05H633Z Insertion of Infusion Device into Left Subclavian Vein, Percutaneous Approach (ICD-10-PCS; principal; 2020-02-05)
PROC: 05H633Z Insertion of Infusion Device into Left Subclavian Vein, Percutaneous Approach (ICD-10-PCS; 2020-02-05)
DX: U07.1 COVID-19 (principal); I50.31 Acute diastolic (congestive) heart failure; J96.02 Acute respiratory failure with hypercapnia; J18.9 Pneumonia, unspecified organism; J96.01 Acute respiratory failure with hypoxia; N17.0 Acute kidney failure with tubular necrosis; I13.0 Hypertensive heart and chronic kidney disease with heart failure and stage 1 through stage 4 chronic kidney disease, or unspecified chronic kidney disease; N18.4 Chronic kidney disease, stage 4 (severe); E87.1 Hypo-osmolality and hyponatremia; E87.2 Acidosis; E11.22 Type 2 diabetes mellitus with diabetic chronic kidney disease; E03.9 Hypothyroidism, unspecified; N40.0 Benign prostatic hyperplasia without lower urinary tract symptoms; E78.5 Hyperlipidemia, unspecified; I25.10 Atherosclerotic heart disease of native coronary artery without angina pectoris; Z66 Do not resuscitate; E87.5 Hyperkalemia; D64.9 Anemia, unspecified